=== PATIENT | male | born 1950 | race Caucasian/White ===

== ENCOUNTER 2018-09-29 15:04 | Emergency (ER) | payer OTHER ==
[~2018-09-29] VITALS: Ht 172.7 cm; Wt 86.2 kg
[2018-09-29] MEDS ORDERED: MULTIPLE VITAM1 EAC4 PO (15:20)
[2018-09-29 15:46] VITALS: BP 138/80
== END 2018-09-29 15:47 | disposition home or self-care (01) ==
LOC: M.ERS 15:04
DX: S61.012A Laceration without foreign body of left thumb without damage to nail, initial encounter (principal); W26.8XXA Contact with other sharp object(s), not elsewhere classified, initial encounter; Y93.89 Activity, other specified; Y92.89 Other specified places as the place of occurrence of the external cause; Y99.8 Other external cause status